=== PATIENT | female | born 1940 | race Caucasian/White ===

== ENCOUNTER 2022-05-16 10:09 | Outpatient (CLI) | payer OTHER ==
[~2022-05-16 10:09] MED LIST: Iopamidol 370 76% 100 ML VIAL ONE
== END 2022-05-16 10:10 | disposition home or self-care (01) ==
LOC: CT 10:09
PROVIDERS: ATTEND Internal Medicine Hematology & Oncology
DX: C53.8 Malignant neoplasm of overlapping sites of cervix uteri (principal); R91.8 Other nonspecific abnormal finding of lung field
CPT/HCPCS: 71260; 74177; Q9967

== ENCOUNTER 2022-09-01 08:29 | Outpatient (CLI) | payer OTHER | END 2022-09-01 08:30 | disposition home or self-care (01) | LOC: BICCT 08:29 | PROVIDERS: ATTEND Internal Medicine Hematology & Oncology | DX: C53.8 Malignant neoplasm of overlapping sites of cervix uteri (principal); R91.1 Solitary pulmonary nodule; R97.8 Other abnormal tumor markers; S32.011A Stable burst fracture of first lumbar vertebra, initial encounter for closed fracture | CPT/HCPCS: 71260; 74177 ==

== ENCOUNTER 2022-11-19 22:16 | Emergency (ER) | payer OTHER | END 2022-11-20 00:33 | disposition home or self-care (01) | LOC: ERS 22:16 | DX: M71.21 Synovial cyst of popliteal space [Baker], right knee (principal) ==

== ENCOUNTER 2022-12-09 08:00 | Outpatient (CLI) | payer OTHER | END 2022-12-09 23:59 | disposition home or self-care (01) | LOC: BICCT 08:00 | PROVIDERS: ATTEND Internal Medicine Hematology & Oncology | DX: C53.8 Malignant neoplasm of overlapping sites of cervix uteri (principal); R97.8 Other abnormal tumor markers; S32.011A Stable burst fracture of first lumbar vertebra, initial encounter for closed fracture; R91.8 Other nonspecific abnormal finding of lung field | CPT/HCPCS: 71260; 74177; 82565 ==

== ENCOUNTER 2023-01-10 15:14 | Outpatient (CLI) | payer OTHER | END 2023-01-10 15:15 | disposition home or self-care (01) | LOC: ULT 15:14 | PROVIDERS: ATTEND Family Medicine | DX: R60.0 Localized edema (principal); R68.89 Other general symptoms and signs; M71.21 Synovial cyst of popliteal space [Baker], right knee; I70.203 Unspecified atherosclerosis of native arteries of extremities, bilateral legs | CPT/HCPCS: 93923 ==

== ENCOUNTER 2023-02-15 16:16 | Outpatient (CLI) | payer OTHER | END 2023-02-15 16:17 | disposition home or self-care (01) | LOC: ULT 16:16 | PROVIDERS: ATTEND Nurse Practitioner Family | DX: M79.605 Pain in left leg (principal); M79.604 Pain in right leg; M71.21 Synovial cyst of popliteal space [Baker], right knee | CPT/HCPCS: 93923; 93970 ==

== ENCOUNTER 2023-04-24 09:29 | Outpatient (CLI) | payer OTHER ==
[2023-04-24] MEDS ORDERED: Iopamidol-370 76% 500 ML MDV (1 ML CHARGE) ONE (10:57)
== END 2023-04-24 09:30 | disposition home or self-care (01) ==
LOC: BICCT 09:29
PROVIDERS: ATTEND Internal Medicine Hematology & Oncology
DX: C53.8 Malignant neoplasm of overlapping sites of cervix uteri (principal)
CPT/HCPCS: 71260; 74177; 82565

== ENCOUNTER 2023-05-26 10:09 | Outpatient (CLI) | payer OTHER | END 2023-05-26 10:10 | disposition home or self-care (01) | LOC: BICMAMMO 10:09 | PROVIDERS: ATTEND Internal Medicine Rheumatology | DX: M81.0 Age-related osteoporosis without current pathological fracture (principal); M85.88 Other specified disorders of bone density and structure, other site | CPT/HCPCS: 77080 ==

== ENCOUNTER 2023-07-19 10:34 | Outpatient (CLI) | payer OTHER | END 2023-07-19 10:35 | disposition home or self-care (01) | LOC: BICMRI 10:34 | PROVIDERS: ATTEND Psychiatry & Neurology Neurology | DX: M48.02 Spinal stenosis, cervical region (principal); M47.812 Spondylosis without myelopathy or radiculopathy, cervical region; M48.8X2 Other specified spondylopathies, cervical region | CPT/HCPCS: 72141 ==

== ENCOUNTER 2024-04-08 10:55 | Emergency (ER) | payer OTHER ==
[2024-04-08] MEDS ORDERED: Naproxen 500 MG TAB ONE (13:08)
== END 2024-04-08 14:55 | disposition home or self-care (01) ==
LOC: ERS 10:55
DX: S70.01XA Contusion of right hip, initial encounter (principal); X58.XXXA Exposure to other specified factors, initial encounter
CPT/HCPCS: 72192

== ENCOUNTER 2024-04-19 09:24 | Outpatient (CLI) | payer OTHER ==
[2024-04-19] MEDS ORDERED: Iopamidol 370 76% 100 ML VIAL ONE (14:40)
== END 2024-04-19 09:25 | disposition home or self-care (01) ==
LOC: BICCT 09:24
PROVIDERS: ATTEND Internal Medicine Hematology & Oncology
DX: C53.8 Malignant neoplasm of overlapping sites of cervix uteri (principal); R91.1 Solitary pulmonary nodule; R97.8 Other abnormal tumor markers
CPT/HCPCS: 36415; 71260; 74177; 82565; Q9967

== ENCOUNTER 2024-10-18 08:25 | Outpatient (CLI) | payer MEDICARE ==
[2024-10-18 09:00] LABS: Estimated GFR - POC 85.0
[2024-10-18] MEDS ORDERED: Iopamidol 370 76% 100 ML VIAL ONE (12:14)
== END 2024-10-18 08:26 | disposition home or self-care (01) ==
LOC: CT 08:25
PROVIDERS: ATTEND Internal Medicine Hematology & Oncology
DX: C53.8 Malignant neoplasm of overlapping sites of cervix uteri (principal); R97.8 Other abnormal tumor markers; J98.4 Other disorders of lung; R91.8 Other nonspecific abnormal finding of lung field; K76.89 Other specified diseases of liver; S32.011A Stable burst fracture of first lumbar vertebra, initial encounter for closed fracture; K83.8 Other specified diseases of biliary tract; M47.816 Spondylosis without myelopathy or radiculopathy, lumbar region; M47.814 Spondylosis without myelopathy or radiculopathy, thoracic region; I70.0 Atherosclerosis of aorta; I70.8 Atherosclerosis of other arteries; Z96.643 Presence of artificial hip joint, bilateral; Z98.890 Other specified postprocedural states
CPT/HCPCS: 36415; 71260; 74177; 82565 ×2; Q9967